=== PATIENT | male | born 1955 | race Caucasian/White ===

== ENCOUNTER 2021-04-08 13:07 | Emergency (ER) | payer MEDICARE, BC, SELFPAY ==
[2021-04-08] VITALS (13 sets, daily range): BP systolic 0–147; BP diastolic 0–93; PULSE 0–112; RESP 0–29; TEMP -17.7–33.5; O2SAT 0–98; BMI 23.6
--- NOTE | 2021-04-08 13:07 | PC.NURSE ---
squad reports they were called to home for unresponsive pt. states when they arrived to home pt was pulseless and apneic started cpr pt was given 2mg narcan, 3 epis. blood sugar was 63 given D50. with no response to meds. pt admits with cpr in progress, and bagged with bvm. squad placed an IO rt lower leg. when pt was placed on stretcher cpr held pulse check +pulse. dale removed. IV started lt hand with #20 and rt ac #18. IV NS infusing.
--- NOTE | 2021-04-08 13:10 | PC.NURSE ---
pt intubated per dr clemente #7.5 ettube 22 corner mouth. +color change. BS toyin. blood sugar 295
--- NOTE | 2021-04-08 13:22 | PC.NURSE ---
unable to obtain a blood pressure manually or with doppler. levophed drip started.
--- NOTE | 2021-04-08 13:27 | [facility].EDGENADL ---
ED Disposition Clinical Impression: Cardiac arrest, Substance abuse, Hyperkalemia, Metabolic acidosis Acute renal failure Qualifiers: Acute renal failure type: unspecified Qualified Code(s): N17.9 - Acute kidney failure, unspecified Atrial fibrillation Qualifiers: Atrial fibrillation type: unspecified Qualified Code(s): I48.91 - Unspecified atrial fibrillation Rhabdomyolysis Qualifiers: Rhabdomyolysis type: non-traumatic Qualified Code(s): M62.82 - Rhabdomyolysis Disposition: Condition on Discharge: Referrals: Provider,Referral, MD [Primary Care Provider] - - Critical Care Critical Care Time: Yes Attestation: On , the high probability of a clinically significant, sudden or life threatening deterioration of the following system(s) required my full and direct attention, intervention and personal management. The time I documented below is in addition to time spent performing reported procedures but includes the following listed in this critical care notation. Total Critical Care Time: 60 Vital system(s) involved:: Circulatory Failure, Metabolic Failure, Respiratory Failure, Renal Failure My critical care processes included: Assessment & monitoring of V/S, Initial and Re-exams, Data Review/Interpretation, Coordinating Care, Medication Orders and management, Documentation Probable Cause of : Cardiac arrest Medical Decision Making - Rocky Inquiry Pt receiving controlled substance: Yes Rocky was queried for this patient: No Risks and benefits of using a controlled substance: were not discussed with pt by me Vital Signs: 04/08/21 14:00 Respiratory Rate 29 H 02 Sat by Pulse Oximetry 98 Oxygen Flow Rate (LPM) 30 - Lab Data Lab Results 04/08/21 13:25: WBC 12.6 H, RBC 4.17 L, Hgb 12.9 L, Hct 47.9, MCV 114.8 H, MCH 31.0, MCHC 27.0 L, RDW 14.2, Plt Count 75 L, MPV 11.5 H, Neut % (Auto) 57.9, Lymph % (Auto) 31.8, Weld % (Auto) 8.8, Eos % (Auto) 0.6, Baso % (Auto) 0.9, Neut # (Auto) 7.3, Lymph # (Auto) 4.0, Weld # (Auto) 1.1 H, Eos # (Auto) 0.1, Baso # (Auto) 0.1 04/08/21 13:25: Sodium 146 H, Potassium 6.9 H*, Chloride 108 H, Carbon Dioxide 5 L*, Anion Gap 39.9 H, BUN 43 H, Creatinine 7.10 H, Estimated Creat Clear 11, Estimated GFR 8 L*, Est GFR ( Amer) 10 L*, Glucose 251 H, Calcium 9.0, Total Bilirubin 1.0, AST 2279 H*, ALT 1111 H*, Alkaline Phosphatase 95, Troponin I 0.02, NT-Pro-B Natriuret Pep 6540 H, Total Protein 5.6 L, Albumin 2.7 L, Globulin 2.9, Albumin/Globulin Ratio 0.9 L 04/08/21 13:25: Magnesium 3.1 H 04/08/21 13:25: Plasma/Serum Alcohol < 10 04/08/21 13:25: Total Creatine Kinase 8230 H* 04/08/21 13:26: SARS-CoV-2 (PCR) Not detected, Influenza A Untype (PCR) Not detected, Influenza Type B (PCR) Not detected 04/08/21 13:30: Salicylates < 1.0 L, Acetaminophen < 10 L, Total Valproic Acid 27.2 L 04/08/21 13:31: Specimen Source L femoral, O2 % Ambu, ABG pO2 478.1 H, ABG O2 Saturation 99 04/08/21 13:36: Urine Color Yellow, Urine Appearance Clear, Urine pH 5.0, Ur Specific Watts >= 1.030, Urine Protein 2+, Urine Glucose (UA) Trace, Urine Ketones 1+, Urine Blood 3+, Urine Nitrate Positive, Urine Bilirubin 2+ A, Urine Urobilinogen 0.2, Ur Leukocyte Esterase Trace, Urine RBC 50-100, Urine WBC Occasional, Ur Squamous Epith Cells Occasional, Urine Bacteria 4+, Urine Mucus Trace 04/08/21 13:36: Urine Opiates Screen Positive H, Urine Methadone Screen Negative, Ur Barbituates Screen Negative, Ur Phencyclidine Scrn Negative, Ur Amphetamines Screen Negative, U Benzodiazepines Scrn Positive H, Urine Cocaine Screen Negative, U Marijuana (THC) Screen Negative 04/08/21 15:00: Specimen Source L femoral, O2 % 30, ABG pH 6.59 L*, ABG pCO2 32.5 L, ABG pO2 162.3 H, ABG HCO3 3.0 L, ABG Total CO2 4.0 L, ABG O2 Saturation 97, ABG Base Excess -35.0 L, ABG Lactate 17.9 H, Vent Rate 24, Tidal Volume 420, PEEP 5 Result diagrams: 04/08/21 13:25 04/08/21 13:25 Orders (Tests/Meds): ED MEDICATIONS Generic Name Dose R
--- NOTE | 2021-04-08 13:28 | PC.NURSE ---
chest xray to check tube placement. khalil placed
--- NOTE | 2021-04-08 13:33 | XR_ITS ---
PROCEDURE INFORMATION: Exam: XR Chest Exam date and time: 04/08/2021 1:33 PM Age: 65 years old Clinical indication: Shortness of breath and other: Code blue; Additional info: Unresponsive/ code blue TECHNIQUE: Imaging protocol: XR of the chest. Views: 1 view. COMPARISON: No relevant prior studies available. FINDINGS: Tubes, catheters and devices: Endotracheal tube is present with the tip 4.4 cm above the level of bird. Lungs: Unremarkable. No consolidation. Pleural spaces: There is no evidence of pneumothorax. There are no pleural effusions present. Heart/Mediastinum: Unremarkable. No cardiomegaly. Bones/joints: Unremarkable. IMPRESSION: 1. Endotracheal tube is present with the tip 4.4 cm above the level of bird. 2. There is no evidence of pneumothorax.
[2021-04-08 13:34] LABS: ABG PO2 478.1 mmhg (80-100)
[2021-04-08 13:35] LABS: ABG Oxygen Saturation 99 % (90-100); Oxygen AMBU %; Source L FEMORAL
--- NOTE | 2021-04-08 13:35 | CT_ITS ---
PROCEDURE INFORMATION: Exam: CT Head Without Contrast Exam date and time: 04/08/2021 1:35 PM Age: 65 years old Clinical indication: Other: Code blue nonresponsive; Additional info: Cardiac arrrest, unresponsive TECHNIQUE: Imaging protocol: Computed tomography of the head without contrast. Radiation optimization: All CT scans at this facility use at least one of these dose optimization techniques: automated exposure control; mA and/or kV adjustment per patient size (includes targeted exams where dose is matched to clinical indication); or iterative reconstruction. COMPARISON: No relevant prior studies available. FINDINGS: Brain: Prominent sulci. Patchy hypodensity of the cerebral white matter which are nonspecific but likely secondary to microangiopathic changes. Cerebral ventricles: The ventricles are prominent secondary to diffuse volume loss/atrophy. Paranasal sinuses: [id number] mucoperiosteal thickening of the paranasal sinuses. Mastoid air cells: Visualized mastoid air cells are well aerated. Bones/joints: Unremarkable. No acute fracture. Soft tissues: Unremarkable. IMPRESSION: Chronic age related changes but no evidence of acute intracranial pathology. Remainder of findings as described above.
--- NOTE | 2021-04-08 13:47 | PC.NURSE ---
pt placed on vent per resp
[2021-04-08 13:50] LABS: Chloride 108 mmol/L (98-107); Sodium 146 mmol/L (136-145)
[2021-04-08 13:52] LABS: Blood Urea Nitrogen 43 mg/dl (9-20); Creatinine Clearance Estimated 11 mL/min (50-200); Estimated Glomerular Filt Rate 8 ml/min (>60); GFR (African American) 10 ML/MIN (>60); Magnesium 3.1 mg/dl (1.6-2.3)
[2021-04-08 13:53] LABS: Microscopic, Urine URINE MICROSCOPIC (MICROSCOPIC)
[2021-04-08 13:53] LABS: Albumin Level 2.7 g/dl (3.5-5.0); Albumin/Globulin Ratio 0.9 (1.1-1.8); Alkaline Phosphatase 95 U/L (38-126); Globulin 2.9 g/dL (1.3-3.2); Total Protein,Serum 5.6 g/dl (6.3-8.2)
[2021-04-08 13:54] LABS: Appearance,Urine CLEAR (Clear); Blood, Urine 3+ (Negative); Color,Urine YELLOW (Yellow); Glucose,Urine (UA) TRACE (Negative); Ketones,Urine 1+ (Negative); Leukocyte Esterase,Urine TRACE (Negative); Nitrate,Urine POSITIVE (Negative); Protein,Urine 2+ (Negative); Specific Gravity, Urine >= 1.030 (1.005-1.030); Urobilinogen,Urine 0.2 EU/dl (0.2)
[2021-04-08 13:54] LABS: Glucose 251 mg/dl (74-100)
--- NOTE | 2021-04-08 13:55 | [facility].ITSTN ---
PATIENT CAME IN DUE TO CARDIAC ARREST. CAT SCAN OF HEAD DELAYED UNTIL PATIENT CAN BE STABLIZED ENOUGH TO COME TO CT.
[2021-04-08 13:56] LABS: Basophils # 0.1 K/mm3 (0-0.2); Basophils % 0.9 % (0.1-2.0); Eosinophils # 0.1 K/mm3 (0.0-0.4); Eosinophils % 0.6 % (0.1-12.0); Hematocrit 47.9 % (42.0-52.0); Hemoglobin 12.9 g/dL (14.1-18.0); Lymphocytes % 31.8 % (10-50); Mean Corpuscular Volume 114.8 fl (80-94); Mean Platelet Volume 11.5 fl (7.4-10.4); Monocytes # 1.1 K/mm3 (0.1-1.0); Monocytes % 8.8 % (1.7-9.3); Neutrophils # 7.3 K/mm3 (1.8-7.8); Neutrophils % 57.9 % (37.0-80.0); Platelet Count 75 K/mm3 (142-424); Red Blood Count 4.17 M/mm3 (4.60-6.20); Red Cell Distribution Width 14.2 % (11.5-17.5); White Blood Count 12.6 K/mm3 (4.8-10.8)
[2021-04-08 13:57] LABS: Bilirubin,Urine 2+ (Negative)
[2021-04-08 14:02] LABS: NT Pro Brain Natriuretic Pep. 6540 pg/mL (0-125)
[2021-04-08 14:06] LABS: Troponin I 0.02 ng/ml (0.00-0.034)
[2021-04-08 14:07] LABS: Benzodiazepines Screen,Urine Positive ng/ml (<200)
--- NOTE | 2021-04-08 14:07 | PC.NURSE ---
to ct with monitor and nurse.
[2021-04-08 14:08] LABS: Valproic Acid, (Depakene) 27.2 ug/ml (50-100)
[2021-04-08 14:08] LABS: Amphetamine/Metha Screen,Urine Negative ng/ml (<1000); Barbiturates Screen,Urine Negative ng/ml (<200)
[2021-04-08 14:09] LABS: Cannabinoid Screen,Urine Negative ng/ml (<50); Cocaine Screen,Urine Negative ng/ml (<300)
[2021-04-08 14:09] LABS: Acetaminophen < 10 ug/ml (10-30); Salicylate < 1.0 mg/dL (2.0-20.0)
[2021-04-08 14:10] LABS: Methadone Screen,Urine Negative ng/ml (<300)
[2021-04-08 14:11] LABS: Opiate Screen,Urine Positive ng/ml (<300); Phencyclidine Screen,Urine Negative ng/ml (<25)
[2021-04-08 14:22] LABS: Bacteria,Urine 4+ /lpf; Mucus,Urine Trace /lpf; RBC,Urine 50-100 #/hpf (0-3); Squamous Epithelial Cell,Urine Occasional #/hpf (0-5); WBC,Urine Occasional #/hpf (0-3)
[2021-04-08 14:25] LABS: Alanine Aminotransferase 1111 U/L (12-78)
[2021-04-08 14:26] LABS: Anion Gap 39.9 mEq/L (5-15); Potassium 6.9 mmoL/L (3.5-5.1)
[2021-04-08 14:27] LABS: Carbon Dioxide 5 mmol/L (22.0-30.0)
[2021-04-08 14:32] LABS: Ethyl Alcohol < 10 mg/dl (0-10)
--- NOTE | 2021-04-08 14:35 | ECG_ITS ---
APPROVED REPORT Exam: Resting ECG HR:96 bpm ECG Measurements Heart Rate 96 AXES QRSd 88 QRS 37 QT 380 T 66 QTc 480 Conclusion Atrial fibrillation Low voltage QRS Prolonged QT Abnormal ECG Electronically signed by : Thomas Sanders MD 04/15/2021 08:33:21
[2021-04-08 14:37] LABS: Aspartate Amino Transferase 2279 U/L (17-59)
[2021-04-08 14:42] LABS: Coronavirus 19, PCR Not Detected (NotDetected); Influenza A, PCR Not Detected (NotDetected); Influenza B, PCR Not Detected (NotDetected)
--- NOTE | 2021-04-08 14:55 | PC.NURSE ---
family at bedside
--- NOTE | 2021-04-08 14:56 | PC.NURSE ---
SO states she thinks pt may have accidentally overdosed on benzos.
[2021-04-08 14:57] LABS: ABG Oxygen Saturation 97 % (90-100); ABG PCO2 32.5 mmhg (35.0-45.0); ABG PO2 162.3 mmhg (80-100)
[2021-04-08 15:06] LABS: Oxygen 30 %; PEEP 5; Source L FEMORAL; Tidal Volume 420; Vent Rate 24
[2021-04-08 15:07] LABS: ABG PH 6.59 mmol/L (7.35-7.45)
[2021-04-08 15:08] LABS: Lactate Arterial 17.9 mmol/L (0.4-2.0)
[2021-04-08 15:09] LABS: Creatine Kinase 8230 U/L (55-170)
--- NOTE | 2021-04-08 15:28 | PC.NURSE ---
Dr Dye speaking with Dr Rodriguez, MDS
--- NOTE | 2021-04-08 15:34 | PC.NURSE ---
placed call to [facility] awaiting call from Dr Daniels
--- NOTE | 2021-04-08 16:03 | PC.NURSE ---
pt extubated per resp. drips stopped
--- NOTE | 2021-04-08 16:56 | PC.NURSE ---
pronounced by dr clemente
--- NOTE | 2021-04-08 17:59 | PC.NURSE ---
pt left dept per car worker helper.
== END 2021-04-08 19:15 | disposition expired ==
PROVIDERS: Emergency Provider Emergency Medicine
DX: I46.9 Cardiac arrest, cause unspecified (principal); E87.2 Acidosis; N17.9 Acute kidney failure, unspecified; M62.82 Rhabdomyolysis; F17.210 Nicotine dependence, cigarettes, uncomplicated; Z79.899 Other long term (current) drug therapy; F19.10 Other psychoactive substance abuse, uncomplicated
CPT/HCPCS: 70450; 71045; 80053; 80164; 80305; 80329; 81001; 82550; 82803; 83605; 83735; 83880; 84484; 85025; 87070; 87086; 87205; 93005; 93041; 96365; 96367; 96375; 96376; 99285; C9803; J1956; U0003; U0005